=== PATIENT | female | born 1990 | race American Indian/Alaskan Native ===

== ENCOUNTER 2018-09-30 18:37 | Emergency (ER) | payer MEDICAID, OTHER ==
[~2018-09-30] VITALS: Ht 154.9 cm; Wt 104.0 kg
[2018-09-30] MEDS ORDERED: normal saline 1000ml 1,000 ML IV ONE ×2 (19:15→20:10)
[2018-09-30] MEDS ORDERED: ketorolac trometh. 30mg/ml inj. IV ONE (19:15)
[2018-09-30] MEDS ORDERED: ondansetron/PF 4mg/2ml inj IV ONE (19:15)
[2018-09-30] MEDS ORDERED: proCHLORperazine 10 MG/2 ml inj IV ONE (19:15)
[2018-09-30 20:51] LABS: CLARITY,URINE CLEAR (Clear); COLOR,URINE AMBER (Yellow); GLUCOSE, URINE NEGATIVE (Neg); KETONES,URINE 40 mg/dl (Neg); LEUKOCYTE ESTERASE ,URINE NEGATIVE (Neg); NITRITES, URINE NEGATIVE (Neg); OCCULT BLOOD,URINE NEGATIVE (Neg); PROTEIN,URINE 100 mg/dl (Neg)
[2018-09-30 20:52] LABS: UA COLLECTION TYPE CLN CATCH MIDSTREAM
[2018-09-30 20:53] LABS: URINE HCG NEGATIVE (NEG)
[2018-09-30 20:57] LABS: BACTERIA,URINE 1+ /HPF (Neg); MUCUS STRANDS MODERATE /LPF (Neg); RBC,URINE NONE SEEN /HPF (0-2); SQUAMOUS EPITHELIAL CELL,UR MANY /LPF (FEW); WBC,URINE 0-4 /HPF (0-4)
[2018-09-30 21:17] VITALS: BP 117/60
== END 2018-09-30 21:40 | disposition home or self-care (01) ==
LOC: ER 18:38
DX: R11.2 Nausea with vomiting, unspecified (principal); R05 Cough; Z88.0 Allergy status to penicillin
CPT/HCPCS: 71045; 81001; 81025; 96361; 96374; 96375; 99284; J0780; J1885; J2405; J7030

== ENCOUNTER 2018-10-31 21:07 | Emergency (ER) | payer MEDICAID ==
[~2018-10-31] VITALS: Ht 152.4 cm; Wt 104.0 kg
[2018-10-31 21:20] VITALS: BP 159/100
== END 2018-10-31 21:40 | disposition home or self-care (01) ==
LOC: ER 21:08
DX: Z46.6 Encounter for fitting and adjustment of urinary device (principal); Z88.0 Allergy status to penicillin
CPT/HCPCS: 99281